=== PATIENT | female | born 1970 | race Caucasian/White ===

== ENCOUNTER 2018-08-24 07:09 | Emergency (ER) | payer BC ==
[2018-08-24] MEDS ORDERED: KETOROLAC 30 MG/ML VIAL IVP ONE (07:30)
--- NOTE | 2018-08-24 07:43 | Emergency Department Record ---
History of Present Illness - General Chief Complaint: Chest Pain Stated Complaint: CHEST PAIN/GEOFF Time Seen by Provider: 08/24/18 07:19 Source: Patient Mode of Arrival: Ambulatory Limitations: No limitations - History of Present Illness Initial Comments: The patient is here due to CP which started last evening. She describes the pain as a chest heaviness L retrosternal that does radiate to her neck at times. She denies any SOB, GEOFF, sweating or nausea but the pain is worse with bending, twisting and taking deep breaths. She denies any recent illnesses, injuries, or any CP with exertion. 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 She has no hx of similar issues and no cardiac risk factors. MD Complaint: Chest pain Onset/Timin -: Days(s) Onset: During rest Pain Location: Substernal Pain Radiation: Back, Neck Severity: Moderate Severity scale (1-10): 7 Quality: Aching, Heaviness Consistency: Constant Improves With: Remaining still Worsens With: Inspiration, Movement Treatments Prior to Arrival: None - Related Data Home Medications Medication Instructions Recorded Confirmed Last Taken Thyroid,Pork [Thyroid] 30 mg PO DAILY 08/24/18 08/24/18 Unknown Previous Rx's Medication Instructions Recorded Colchicine 0.6 mg PO BID #28 capsule 08/24/18 Naproxen [Naprosyn] 250 mg PO BID #14 tablet 08/24/18 Allergies Allergy/AdvReac Type Severity Reaction Status Date / Time gluten Allergy ABDOMINAL Verified 08/24/18 07:18 PAIN Sulfa (Sulfonamide Allergy HIVES Verified 08/24/18 07:18 Antibiotics) Travel Screening - Travel/Exposure Within Last 30 Days Have you traveled within the last 30 days?: No Review of Systems Constitutional: Denies: Chills, Fever Eyes: Denies: Eye discharge ENT: Denies: Congestion Respiratory: Denies: Cough, Dyspnea Cardiovascular: Reports: Chest pain. 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 - GI Hx GI Disorders: No - Hx Genitourinary Disorders: No - ENDOCRINE Hx Endocrine Disorders: Yes Hx Thyroid Disease: Yes (hypo) - MUSCULOSKELETAL Hx Musculoskeletal Disorders: No - PSYCH Hx Psych Problems: No - HEMATOLOGY/ONCOLOGY Hx Hematology/Oncology Disorders: No Family Medical History Any Significant Family History?: Yes Hx Heart Disease: Grandparents Hx Stroke: Father, Grandparents Physical Exam - General General Appearance: Alert, Oriented x3, Cooperative, No acute distress - Head Head exam: Atraumatic, Normocephalic, Normal inspection - Eye Eye exam: Normal appearance, PERRL - Neck Neck exam: Normal inspection, Full ROM. negative: Tenderness - Respiratory Respiratory exam: Normal lung sounds bilaterally, Chest wall tenderness (There is reproducible L anterior chest wall tenderness.). negative: Respiratory distress - Cardiovascular Cardiovascular Exam: Regular rate, Normal rhythm, Normal heart sounds. negative : Clicks, Diastolic murmur, Rubs, Systolic murmur - GI/Abdominal GI/Abdominal exam: Soft, Normal bowel sounds. negative: Tenderness - Extremities Extremities exam: Normal inspection, Full ROM, Normal capillary refill. negative: Tenderness - Back Back exam: Reports: Normal inspection - Neurological Neurological exam: Alert, Normal gait. negative: Abnormal gait - Psychiatric Psychiatric exam: negative: Anxious - Skin Skin exam: negative: Rash Course Vital Signs 08/24/18 07:12 Temperature 98.7 F Pulse Rate 79 Respiratory 20 Rate Blood Pressure 131/80 Pulse Ox 99 - Reevaluation(s) Reevaluation #1: The patient is doing a little better with the pain after the Toradol. I did discuss the options with her regarding the fact that I believe her pain is most likely due to Pericarditis. She will need a short stay admission and a cardiac echo and we will check to see if that can be accomplished here at [facility]. 08/24/18 09:17 Reevaluation #2: The patient is doing a lot better at this time but is still having mild pain. She denies any SOB or GEOFF but the pain is still positional. I explained to her that I am concerned she may have a mild case of Pericarditis. I did also consult with Dr. Terry and he agree with the plan to treat for Pericarditis and have the patient see him in the Specialty clinic next week and at that time an echo may be obtained. He would like the patient started on Colchicine along with an NSAID and we will place the consult for next week. 08/24/18 10:12 Reevaluation #3: The patient is doing very well at this time with normal vital signs. She is only having pain with deep breaths now and is resting comfortably. I did explain the need for the Cardiology appointment for Monday at 2pm and the patient agrees with the plan. 08/24/18 11:30 Medical Decision Making - Data Complexity MDM Data: Labs Ordered and/or Reviewed, X-Ray Ordered and/or Reviewed, EKG Ordered and/or Reviewed - Lab Data Result diagrams: 08/24/18 07:20 08/24/18 07:20 - EKG Data -: EKG Interpreted by Me EKG: Normal EKG - Radiology Data Radiology results: Report reviewed (CXR: Neg.) Disposition Disposition: Discharge Clinical Impression: Pleurisy Disposition: Home, Self-Care Condition: (2) Stable Instructions: Pleurisy (ED) Additional Instructions: Please take the Naprosyn along with the Colchicine. Please see the Cardiology PA Monday at 2:00 pm in the Specialty Clinic. Please return to the ER for any worsening symptoms. Prescriptions: Colchicine 0.6 mg PO BID #28 capsule Naproxen [Naprosyn] 250 mg PO BID #14 tablet Referrals: [facility] Specialty Clinics [Provider Group] Forms: Patient Portal Access Time of Disposition: 11:33 Quality - Quality Measures Quality Measures: N/A - Blood Pressure Screening View Details: Yes Does Patient Have Any of the Following: No Blood Pressure Classification: Normal BP Reading Systolic Measurement: 107 Diastolic Measurement: 70 Screening for High Blood Pressure: < Normal BP, F/U Not Required > [[id number]]
[2018-08-24 07:46] LABS: BASO % 0.4 % (0-6); EOS % 3.9 % (0-6); GRAN % 59.8 % (47-80); HEMATOCRIT 38.4 % (35.0-47.0); HEMOGLOBIN 13.3 gm/dl (11.6-16.0); LYMPH % 26.1 % (16-45); MEAN CELL VOLUME 92.1 fl (81-97); MEAN CORPUSCULAR HEMOGLOBIN 31.9 pg (27-33); MEAN CORPUSCULAR HGB CONC 34.6 g/dl (32-36); MEAN PLATELET VOLUME 8.4 fl (7.4-10.4); MONO % 9.8 % (0-9); PLATELET COUNT 250 K/uL (130-400); RED BLOOD COUNT 4.17 M/uL (3.80-5.40); WHITE BLOOD COUNT W/O DIFF 4.9 K/uL (4.2-12.2)
[2018-08-24 07:55] LABS: BLOOD UREA NITROGEN 8 mg/dL (6-20); CREATININE 0.6 mg/dL (0.5-0.9); EST GLOMERULAR FILTRATION RATE > 60 mL/min; TOTAL PROTEIN 7.3 g/dL (6.6-8.7)
[2018-08-24 07:57] LABS: GLUCOSE,RANDOM 110 mg/dL (74-109)
[2018-08-24 08:00] LABS: ALB/GLOB RATIO 1.9 (1.1-1.8); ALBUMIN 4.8 g/dL (4.0-5.0); ALKALINE PHOSPHATASE 52 U/L (35-104); ALT/SGPT 15 U/L (<33); AST/SGOT 18 U/L (10.0-35.0); CREATINE PHOSPHOKINASE 48 U/L (26-192)
[2018-08-24 08:03] LABS: CKMB < 1.0 ng/mL (<3.77)
[2018-08-24 08:07] LABS: PARTIAL THROMBOPLASTIN TIME 32.5 SECONDS (24.5-39.1); PROTHROMBIN TIME (PATIENT) 10.3 SECONDS (9.5-12.1)
[2018-08-24] MEDS ORDERED: MAGNESIUM HYDROXIDE/AL HYDROX 30 ML, LIDOCAINE VISC 2% 15ML 15 ML PO ONE ×2 (09:07)
[2018-08-24] MEDS ORDERED: MORPHINE SULFATE 10 MG/ML VIAL IVP ONE (09:07)
[2018-08-24] MEDS ORDERED: COLCHICINE 0.6 MG TABLET PO ONE (10:10)
[2018-08-24 11:17] LABS: CKMB < 1.0 ng/mL (<3.77)
--- NOTE | 2018-08-26 13:33 | RADIOLOGY REPORT ---
DATE: 08/24/2018. EXAM: TWO-VIEW CHEST. HISTORY: DIFFICULTY BREATHING. TECHNIQUE: Frontal and lateral views of the chest were performed. FINDINGS: Heart size is normal. Lung montez are clear. Osseous structures are normal. IMPRESSION: NEGATIVE CHEST EXAMINATION. JOB NUMBER: [id number] MTDD
== END 2018-08-24 11:48 | disposition home or self-care (01) ==
LOC: ER 07:09
DX: R09.1 Pleurisy (principal); R06.00 Dyspnea, unspecified; Z87.891 Personal history of nicotine dependence
CPT/HCPCS: 99284 ×2; 96374; 96375; 82550; 85025; 85651; 85730; 85610; 86140; 82553; 80053; 84484; 85379; 71046; 93005; 93010; J1885